=== PATIENT | male | born 1975 | race Caucasian/White ===

== ENCOUNTER 2020-03-06 20:02 | Inpatient (IN) | payer MEDICARE ==
[~2020-03-06] VITALS: Ht 180.3 cm; Wt 106.0 kg
--- NOTE | 2020-03-06 20:30 | NUR ---
PT ARRIVED TO THE FLOOR ACCOMPANIED TO STAFF, GATE STEADY, PT AMBULATED TO BATHROOM AND INTO BED. PT ORINETED TO ROOM AND CALL MANCERA SYSTEM. VS OBTAINED. SAFETY PRECAUTIONS IN [place]. WILL CONTIUE TO MONITOR.
[2020-03-06 20:39] VITALS: BP 140/83
[2020-03-06 23:37] VITALS: BP 127/82
--- NOTE | 2020-03-06 23:52 | NUR ---
NOTIFIED OF PT ALLERGIES TO MD CANDIE STATED THEY WOULD TAKE CARE OF IT IN THE AM.
[2020-03-07] VITALS (7 sets, daily range): BP systolic 95–119; BP diastolic 43–66
--- NOTE | 2020-03-07 00:15 | NUR ---
PT RESTING IN BED, ALERT AND ORIETNED, RESPIRATIONS EVEN AND UNLABORED ON RA. PEDAL PULSES ARE STRONG. SAFETY PRECAUTIONS IN PLACE. WILL CONTINUE TO MONITOR.
--- NOTE | 2020-03-07 04:05 | NUR ---
PT RESTING IN BED, FREE FROM DISTRESS AT THIS TIME. WILL CONTINUE TO MONITOR.
[2020-03-07 06:14] LABS: HEMATOCRIT 48.4 % (39.0-50.0); HEMOGLOBIN 16.3 g/dl (14.0-18.0); IMMATURE GRANULOCYTES 0.4 % (0.0-5.0); MEAN CELL VOLUME 91.8 fL CALC (80.0-100.0); MEAN CORPUSCULAR HGB 30.9 pG CALC (26.0-32.0); MEAN CORPUSCULAR HGB CONC 33.7 g/dL CAL (32.0-36.0); NEUT# 5.69 thou/uL (1.82-7.42); RED BLOOD COUNT 5.27 mill/uL (4.70-6.10); RED CELL DISTRI WIDTH 12.4 % (11.5-15.5)
[2020-03-07 06:14] LABS: URINE BILIRUBIN - DIPSTICK NEGATIVE (NEGATIVE); URINE BLOOD DIPSTICK NEGATIVE (NEGATIVE); URINE CLARITY HAZY; URINE COLOR YELLOW; URINE GLUCOSE - DIPSTICK NEGATIVE (NEGATIVE); URINE KETONE NEGATIVE (NEGATIVE); URINE LEUK ESTERASE NEGATIVE (Negative); URINE NITRITE - DIPSTICK NEGATIVE (Negative); URINE PH 7.5 (4.5-8.0); URINE PROTEIN - DIPSTICK NEGATIVE (NEG-TRACE); URINE UROBILINOGEN - DIPSTICK 0.2 E.U./dL (0.2)
[2020-03-07 06:25] LABS: ANION GAP 10 (6-22 (CALC)); BUN 19 mg/dL (9-20); BUN/CREATININE RATIO 23 (12-20 (CALC)); CARBON DIOXIDE 23 mmol/l (22-30); CHLORIDE 109 mmol/l (95-108); CREATININE 0.8 mg/dL (0.7-1.3); GFR > 60 ML/MIN (>=60 (CALC)); GFR FOR AFR.AMER. > 60 ML/MIN (>=60 (CALC)); POTASSIUM 4.8 mmol/l (3.5-5.1); SODIUM 137 mmol/l (137-146)
[2020-03-07] MEDS ORDERED: ALPRAZOLAM0.25 M1 PO (06:39)
[2020-03-07] MEDS ORDERED: CYMBALTA60 MG PO (06:40)
[2020-03-07] MEDS ORDERED: NITROGLYCERIN0.4 MG SL (06:41)
[2020-03-07] MEDS ORDERED: PROMETHAZINE50 MG PO (06:43)
--- NOTE | 2020-03-07 07:30 | NUR ---
RECIEVED REPORT FROM ISAAC TREVIZO. PT RESTING IN SEMI FOWLERS POSITION UPON ENTERING ROOM.INTRODUCED SELF TO PT AND DISCUSSED POC. RESPRATIONS ARE EVEN AND UNLABORED WITH NO SIGNS OF DISTRESS. PT COMPLAINS OF NAUSEA. ERIN NOTIFIED, AWAITING ORDERS AT THIS TIME. PT DENIES ANY OTHER PAIN OR DISCMFORTS. ALL SAFTEY PRECAUTIONS IN PLACE. WILL CONTINUE TO MONITOR.
--- NOTE | 2020-03-07 07:56 | NUR ---
NOTIFIED OF CONSULT. AT BEDSIDE AT THIS TIME.
--- NOTE | 2020-03-07 08:54 | NUR ---
ASESSMENT AND VITALS COMPLETED AT THIS TIME. BP 119/66, HR 63, O2 97% ON ROOM AIR. RESPIRATIONS ARE EVEN AND UNLABORED, LUNG SOUNDS ARE CLEAR. HEART RHYTHM IS NROMAL. TELE IN PLACE. BOWEL SOUNDS ARE ACTIVE IN ALL QUADRANTS, LAST REPORTED BM 03/06/20. RADIAL AND PEDAL PULSES ARE STRONG WITH NORMAL CAPILLARY REFILL. SKIN IS WARM AND DRY. DRESSING TO RIGHT LEG IS CDI, NON HEALING WOUND ON RIGHT LEG . IV FLUSHED AT THIS TIME, SITE APPEARS HEALTHY AND PATENT. PT COMPLAINS OF 5/10 PAIN IN RIGHT LEG, MORPHINE TO BE ADMINISTERED ALONG WITH ZOFRAN FOR NAUSEA. PT DENIES ANY OTHER PAIN OR DISCOMFORTS AT THIS TIME.ALL SAFTEY PERCAUTIONS IN PLACE WITH CALL LIGHT IN REACH. WILL CONTINUE TO MONITOR.
[2020-03-07] MEDS ORDERED: ALPRAZOLAM1 MG PO (11:18)
[2020-03-07] MEDS ORDERED: ZOFRAN4 MG/TAB PO (11:20)
[2020-03-07] MEDS ORDERED: ADVAIR DISK1 INH (11:21)
[2020-03-07] MEDS ORDERED: ISOSORBIDE MONO30 MG PO (11:21)
[2020-03-07] MEDS ORDERED: VENTOLIN HFA IN (11:22)
[2020-03-07] MEDS ORDERED: CLOPIDOGREL75 MG PO (11:24)
[2020-03-07] MEDS ORDERED: ASPIRIN 8181 MG PO (11:24)
[2020-03-07] MEDS ORDERED: IPRATROPIU0.5 MG/3 M IN (11:25)
[2020-03-07] MEDS ORDERED: PERCOCET 5/321 COMBO PO (11:25)
--- NOTE | 2020-03-07 12:12 | NUR ---
PT RESTING IN LOW FOWLERS POSITION TALKING ON PHONE. RESPIRATIONS ARE EVEN AND UNLABORED WITH NO SIGNS OF DISTRESS. PT DENIES ANY PAINS OR DISCOMFORTS AT THIS TIME. ALL SAFTEY PRECAUTIONS IN PLACE WITH CALL LIGHT IN REACH.
--- NOTE | 2020-03-07 13:35 | NUR ---
FROM WOUND CENTER AT BEDSIDE AT THIS TIME
--- NOTE | 2020-03-07 14:26 | NUR ---
CALL RECEIVED FROM .PER PT NEEDS A MRI OF RIGHT LEG AND RECORDS FROM PREVIOUS ADMIT AT [facility].
--- NOTE | 2020-03-07 14:27 | NUR ---
PT REPORTS 6/10 PAIN IN RIGHT LEG. LORTAB OFFERED. PT ACCEPTED, LORTAB TO BE ADMINISTERED. PT DENIES ANY OTHER PAINS OR DISCOMFORTS. ALL SAFTEY PRECAUTIONS IN PLACE WITH CALL LIGHT IN REACH. WILL CONTINUE TO MONITOR
--- NOTE | 2020-03-07 14:44 | NUR ---
CALLED WOUND CARE AND SPOKE WITH CHRIST. PER RADIOLOGY MRI OR RIGHT LEG CAN NOT BE COMPLETED UNTIL 03/08/20. CHRIST REPORTED THAT HAS LEFT FOR THE DAY AND THAT HE WOULD NOTIFY HER OF MRI SCHEDULING.
--- NOTE | 2020-03-07 16:14 | NUR ---
PT REPORTS LOTAB NOT WORKING. OFFERED MORPHINE, PT ACCEPTED. MORPHINE TO BE ADMINISTERED AT THIS TIME.RESPIRATIONS ARE EVEN AND UNLABORED. PT DENIES ANY OTHER PAINS AT THIS TIME. ALL SAFTEY PRECAUTIONS IN PLACE WITH CALL LIGHT IN REACH. WILL CONTINUE TO MONITOR
--- NOTE | 2020-03-07 17:31 | NUR ---
REASSESSMENT OF PAIN AT THIS TIME. PT REPORTS A 3/10 RIGHT LEG PAIN. REPORTS MORPHINE IS WORKING. ALL SAFTEY PRECAUTIONS IN PLACE WITH CALL LIGHT IN REACH. WILL CONTINUE TO MONITOR
--- NOTE | 2020-03-07 19:35 | NUR ---
PT RESTING IN BED, NO SIGNS OF DISTRESS NOTED, RESP EVEN AND UNLABORED. PT ALERT AND ORIENTED X3, DISCUSSED POC, PT C/O NAUSEA PT MEDICATED AT THIS TIME. DRESSING TO RLE REMAINS CDI, ASSESSMENT COMPLETED, CALL LIGHT IN REACH,CONTINUE TO MONITOR.
--- NOTE | 2020-03-07 21:00 | NUR ---
PT SITTING ON SIDE OF BED C/O PAIN ATTEMPTED TO MEDICATE WITH LORTAB PT REFUSED REQUESTING MORPHINE. PT MEDICATED WITH IV MORPHINE, CALL LIGHT IN REACH,CONTINUE TO MONITOR.
--- NOTE | 2020-03-07 23:35 | NUR ---
PT REQUESTING XANAX, PT MEDICATED PER MAR. CALL LIGHT IN REACH,CONTINUE TO MONITOR.
[2020-03-08 03:33] VITALS: BP 83/53
--- NOTE | 2020-03-08 03:54 | NUR ---
PT RESTING IN BED, PT BP LOW, NO SIGNS OF DISTRESS NOTED, RESP EVEN AND UNLABORED, PT VOICES NO NEEDS OR COMPLAINTS AT THIS TIME. CALL LIGHT IN REACH,CONTINUE TO MONITOR.
--- NOTE | 2020-03-08 05:36 | NUR ---
IV ANTIBIOTIC INFUSING. PT VOICES NO NEEDS OR COMPLAINTS AT THIS TIME. CALL LIGHT IN REACH,CONTINUE TO MONITOR.
--- NOTE | 2020-03-08 07:20 | NUR ---
REPORT RECEIVED FROM DOYLE GASTELUM;PT APPEARS TO BE SLEEPING IN SEMI FOWLERS POSITION;NO S/S OF DISTRESS NOTED;TELE MONITORING IN PLACE;RESPIRATIONS APPEAR EVEN AND UNLABORED ON RA;ALL SAFETY PRECAUTIONS IN PLACE WITH BED IN THE LOWEST POSITION AND CALL LIGHT IN REACH;WILL CONTINUE TO MONITOR
--- NOTE | 2020-03-08 08:05 | NUR ---
PT RESTING IN SEMI FOWLERS POSITION,A&O X3;VS OBTAINED AND ASSESSMENT COMPLETED;PT DENIES ANY CURRENT PAIN ,PAIN SCALE AND REPORTING EDUCATED;PT REPORTS NAUSEA AND REQUESTS PRN ZOFRAN,PT TO BE MEDICATED PER EMAR;RESPIRATIONS EVEN AND UNLABORED ON RA,CLEAR LUNG SOUNDS;ABDOMEN SOFT ON PALPATION AND ACTIVE IN ALL 4 QUADRANTS;WEAK PEDAL PULSES;DRESSING TO RLE PATENT AND CDI AT THIS TIME;TELE MONITORING IN PLACE;#22G TO RFA FLUSHED AND PATENT,SITE APPEARS HEALTHY;NICOTINE PATCH APPLIED TO IAN;PT DENIES ANY ADDITIONAL NEEDS AND IS ENCOURAGED TO CALL FOR ASSISTANCE IF NEEDED;FALL PRECAUTIONS IN PLACE WITH BED IN THE LOWEST POSITION AND CALL LIGHT IN REACH;WILL CONTINUE TO MONITOR
[2020-03-08 08:09] VITALS: BP 86/56
--- NOTE | 2020-03-08 10:55 | NUR ---
AT BEDSIDE DISCUSSING POC WITH PT.
--- NOTE | 2020-03-08 11:03 | NUR ---
PT RESTING IN SEMI FOWLERS POSITION;RESPIRATIONS EVEN AND UNLABORED ON RA;PT DENIES ANY CURRENT PAIN OR NEEDS;TELE MONITORING IN PLACE;IV SITE PATENT;ASSESSMENT REMAINS UNCHANGED AT THIS TIME;ENCOURAGED TO CALL FOR ASSISTANCE IF NEEDED;CALL LIGHT IN REACH;WILL CONTINUE TO MONTOR
[2020-03-08 11:04] VITALS: BP 87/59
--- NOTE | 2020-03-08 11:25 | NUR ---
PT REPORTS RLE PAIN AND REQUESTS PAIN MEDICATION, PT ADVISED THAT DUE TO LOW BP WRITTER WAS UNABLE TO ADMINISTER PAIN MEDICATION, ERIN ANRP NOTIFIED AND ORDER PLACED FOR TORADOL, PT REPORTS ALLERGY TO TORADOL; PT STATES "I DONT KNOW WHAT I HAVE TO DO, I WILL WALK THE LOVELL TO GET MY BP UP CAUSE I NEED THE PAIN MEDICATION". ANRP NOTIFIED;AWAITING NEW ORDERS;WILL CONTINUE TO MONITOR
[2020-03-08 11:26] VITALS: BP 100/64
--- NOTE | 2020-03-08 11:50 | NUR ---
PT RESTING IN SEMI FOWLERS POSITION EATING LUNCH;RESPIRATIONS REMAIN EVEN AND UNLABORED ON RA;PT MEDICATED WITH PRN LORTAB 7.5MG PO PER FOR RLE PAIN RATING 7/10 ON THE PAIN SCALE;TELE MONITORING IN PLACE;IV SITE REMAINS PATENT AND ABX STARTED AT THIS TIME;CALL LIGHT IN REACH;WILL CONTINUE TO MONITOR FOR EFFECTIVENESS OF PAIN MEDICATION
--- NOTE | 2020-03-08 12:50 | NUR ---
PT RESTING IN SEMI FOWLERS POSITION TALKING ON THE PHONE;RESPIRATIONS EVEN AND UNLABORED ON RA;PT REPORTS PAIN HAS DECREASED TO A 5/10 ON THE PAIN SCALE AND DENIES ANY ADDITIONAL NEEDS;ENCOURAGED TO CALL FOR ASSISTANCE IF NEEDED;CALL LIGHT IN REACH;WILL CONTINUE TO MONITOR
--- NOTE | 2020-03-08 14:20 | NUR ---
HERNÁN TO ROOM TO TRANSPORT PT TO MRI WITH WHEELCHAIR. PT AGREEABLE AND STATES "WHEN WE GET BACK YOU WILL NEED TO CHECK MY BLOOD PRESSURE SO I CAN GET MY PAIN MEDICATION TO SEE IF ITS TOO LOW "; WRITTER INFORMED PT THAT PRN LORTAB IS NOT DUE YET AND WAS ADMINISTERED AT 1150. PT STATES " THEN GET ME THE MORPHINE"; WRITTER INFORMED PT THAT MORPHINE HAS BEEN DISCONTINUED PER MD FOR ADMINISTRATION. PT REFUSES TO GO TO MRI UNTIL WRITTER SPEAKS TO MD ABOUT HIS PAIN MEDICATION AND RESTARTS PRN MORPHINE. ERIN PATEL NOTIFIED.AWAITING NEW ORDERS.
--- NOTE | 2020-03-08 14:40 | NUR ---
PT NOTIFIED THAT PRN MORPHINE WOULD NOT BE RE-STARTED PER AND THAT PRN LORTAB WOULD BE AVAILABLE AT 1530. PT STATES "WELL THEN I SHOULD JUST GO HOME AND TAKE MY OWN STUFF THEN, I HAVE MEDICAL MARIJUANA THAT I AM NOT EVEN ALLOWED TO HAVE HERE". PT VERBALIZES UNDERSTANDING OF LEAVING AGAINST MEDICAL ADVICE AND THE RISKS INVOLVED INCLUDING AND INCREASE IF INFECTION. AMA SIGNED AT THIS TIME;IV SITE REMOVED WITH CATHETER INTACT AND TELE MONITORING D/C. PT REPORTS THE HE WILL BE " HAVING MY LEAD RAMP SERVICE MAN CALL AND FILE A COMPLAINT AGAINST FOR NOT TREATING HIS PAIN AND THAT HE SHOULD NOT HAVE RESUMED HIS CARE WITH FOR A SECOND TIME". AWAITING SPOUSE WITH TRANSPORTATION HOME.
--- NOTE | 2020-03-08 15:15 | NUR ---
WOUND CARE NOTIFIED OF PT ELIAN.
--- NOTE | 2020-03-08 15:20 | NUR ---
Patient decides to leave AMA. Multiple attempts made to ecourage patient to remain here for continued treatment. Explained to patient all risks of leaving against medical advice including . Pt verbalized understanding of all risks. Pt also encouraged to return to [facility] at any time, especially if symptoms continue or become worse. Pt verbalized understanding. PT TRANSPORTED TO [facility] IN STABLE CONDITION VIA WHEELCHAIR ACCOMPANIED BY WRITTER. PT STATES "MAKE SURE YOU DOCUMENT WELL HONEY TO COVER YOUR ASS". PT ASSISTED INTO CAR AND SPOUSE TRANSPORTED PT HOME.
== END 2020-03-08 15:20 | disposition left against medical advice (07) | DRG 603 ==
LOC: MS2 20:02
PROVIDERS: ADMIT Internal Medicine; ATTEND Internal Medicine
DX: L03.115 Cellulitis of right lower limb (principal); L97.819 Non-pressure chronic ulcer of other part of right lower leg with unspecified severity; I87.2 Venous insufficiency (chronic) (peripheral); I10 Essential (primary) hypertension; I25.10 Atherosclerotic heart disease of native coronary artery without angina pectoris; F17.210 Nicotine dependence, cigarettes, uncomplicated; S81.821S Laceration with foreign body, right lower leg, sequela; X58.XXXS Exposure to other specified factors, sequela; B95.7 Other staphylococcus as the cause of diseases classified elsewhere; Z88.1 Allergy status to other antibiotic agents; Z95.5 Presence of coronary angioplasty implant and graft; Z79.02 Long term (current) use of antithrombotics/antiplatelets; Z79.82 Long term (current) use of aspirin; Z95.1 Presence of aortocoronary bypass graft
CPT/HCPCS: J0692